=== PATIENT | male | born 1955 | race Two or more races ===

== ENCOUNTER 2019-01-09 07:35 | Day surgery (SDC) | payer OTHER ==
[~2019-01-09] VITALS: Ht 167.6 cm; Wt 98.0 kg
[2019-01-09 08:02] VITALS: BP 129/71
[2019-01-09 12:28] VITALS: BP 125/76
== END 2019-01-09 12:00 | disposition home or self-care (01) ==
LOC: DS 07:35 → OR 09:30 → GI 09:30 → DS 12:00
DX: K29.70 Gastritis, unspecified, without bleeding (principal); K31.89 Other diseases of stomach and duodenum; K21.9 Gastro-esophageal reflux disease without esophagitis; I25.10 Atherosclerotic heart disease of native coronary artery without angina pectoris; E78.5 Hyperlipidemia, unspecified; E11.9 Type 2 diabetes mellitus without complications; M06.9 Rheumatoid arthritis, unspecified; Z95.818 Presence of other cardiac implants and grafts; Z98.890 Other specified postprocedural states; Z79.84 Long term (current) use of oral hypoglycemic drugs; Z79.899 Other long term (current) drug therapy; Z79.01 Long term (current) use of anticoagulants
CPT/HCPCS: 43235; J1200; J1610; J2250; J2310; J3010; J3490